=== PATIENT | female | born 1955 | race Two or more races ===

== ENCOUNTER 2022-11-20 06:58 | Day surgery (SDC) | payer OTHER, MEDICAID ==
[~2022-11-20] VITALS: Ht 154.9 cm; Wt 65.0 kg
[~2022-11-20 06:58] MED LIST: ASPI-378 OR; CHOL20007 PO; CLOP75TA70 PO; EZET10TA22 PO; LOSA50TA46 PO; METF-370 PO; METO25TA5 PO; ROSU20TA14 PO; [UNRECOGNIZED DRUG - CODE] PO
[2022-11-20] MEDS ORDERED: IODIXANOL 320MG/ML 100ML BTL IV ONE (07:28)
[2022-11-20] MEDS ORDERED: LIDOCAINE 2%HCL (LOCAL ANESTH.) INJ 20ML MDV ONE (07:28)
[2022-11-20] MEDS ORDERED: ANGIOMAX 250 MG VIAL IV ONE (07:39)
[2022-11-20] MEDS ORDERED: fentaNYL CITRATE 100 MCG/2 ML VL ONE (07:39)
[2022-11-20] MEDS ORDERED: HEPARIN SODIUM (PORCINE) 5000 UNITS/ML 1ML VIAL ONE (07:39)
[2022-11-20] MEDS ORDERED: VERAPAMIL 2.5MG/ML INJ 2ML VIAL IV ONE (07:40)
[2022-11-20] MEDS ORDERED: SODIUM CHL 0.9% 50 ML ONE (07:40)
[2022-11-20] MEDS ORDERED: MIDAZOLAM HCL 2MG/2ML 2ml VIAL (1mg/ml) ONE (07:40)
[2022-11-20] MEDS ORDERED: ASPirin 325 MG TAB ONE (08:31)
[2022-11-20] MEDS ORDERED: CLOPIDOGREL 300 MG TAB ONE (08:31)
== END 2022-11-20 12:51 | disposition home or self-care (01) ==
LOC: CATH 06:58
PROVIDERS: ATTEND Internal Medicine Cardiovascular Disease
DX: I25.10 Atherosclerotic heart disease of native coronary artery without angina pectoris (principal); R06.02 Shortness of breath; R94.39 Abnormal result of other cardiovascular function study; I10 Essential (primary) hypertension; E78.5 Hyperlipidemia, unspecified; E11.9 Type 2 diabetes mellitus without complications; E55.9 Vitamin D deficiency, unspecified; R07.89 Other chest pain; Z79.899 Other long term (current) drug therapy; Z79.84 Long term (current) use of oral hypoglycemic drugs; Z98.890 Other specified postprocedural states
CPT/HCPCS: 76937; 93458; C1725; C1769; C1874; C1887; C1894; C9600; J0583; J1644; J2250; J3010; J7030; Q9967; 99152; 99153